=== PATIENT | female | born 2000 ===

== ENCOUNTER 2021-07-21 21:51 | Emergency (ER) | payer BC ==
--- OUTSIDE RECORDS SUMMARY | 2021-07-21 21:53 | XMS REPORT | Continuity of Care Document ---
:[address] [facility] t Address [address] [place] [address] Care Team Providers Name Role Phone PRINCE LAWRENCE Attending Clinician Unavailable Payers Payer Name Policy Type Policy Number Effective Date Expiration Date Roni CHARLES II [id number] 2019 00:00:00 Problems This patient has no known problems. Allergies, Adverse Reactions, Alerts Allergy Allergy Status Severity Reaction(s) Onset Inactive Treating Comm ents Source Name Type Date Date Clinician CODEINE DRUG Active Hallucinates NPI :[id number] [id number] 00:00: 00 Medications This patient has no known medications. Procedures This patient has no known procedures. Encounters Start End Encounter Admission Attending Care Care Encounter Source Date/Time Date/Time Type Type Clinicians Facility Department ID 2021-01-14 Emergency [facility] [id number] NPI:[id number] 05:11:42 [id number] 2020-03-26 [facility] [id number] Q-[id number] NPI:[id number] 10:15:00 10:15:00 JHONATHAN [id number] 2020-03-26 2020-03-26 [facility] [id number] NPI:[id number] 10:15:00 10:15:00 JHONATHAN [id number] 2019-12-27 2019-12-27 [facility] [id number] Q-20 NPI:[id number] 10:00:00 10:00:00 JHONATHAN [id number] 2019-12-27 2019-12-27 [facility] [id number] NPI:[id number] 10:00:00 10:00:00 JHONATHAN [id number] 2019-11-29 2019-11-29 [facility] [id number] Q-20 NPI:[id number] 09:30:00 09:30:00 JHONATHAN [id number] 2019-11-29 2019-11-29 [facility] [id number] NPI:[id number] 09:30:00 09:30:00 JHONATHAN [id number] Results This patient has no known results.
[2021-07-22 01:18] LABS: Hematocrit 37.9 % (36.0-45.0); MPV 7.9 fL (7.6-11.3); RBC Red Blood Cell Count 4.37 M/uL (3.86-4.86)
[2021-07-22 01:19] LABS: Absolute Lymphocytes (CBC) 2.2 K/uL (0.7-4.9)
[2021-07-22 01:22] LABS: Protime INR 1.12
[2021-07-22 01:47] LABS: ALT/SGPT 19 U/L (12-78); AST/SGOT 13 U/L (15-37); Albumin 4.2 g/dL (3.4-5.0); Alkaline Phosphatase 69 U/L (45-117); BUN Blood Urea Nitrogen 14 mg/dL (7-18); Bicarbonate 26 mmol/L (21-32); Bilirubin Direct 0.1 mg/dL (0-0.2); Bilirubin Total 0.5 mg/dL (0.2-1.0); Glucose Level 91 mg/dL (74-106); Magnesium 1.9 mg/dL (1.8-2.4); NT PRO-BNP 28 pg/mL (<125); Potassium 3.7 mmol/L (3.5-5.1); Protein, Total 7.7 g/dL (6.4-8.2); Sodium Level 140 mmol/L (136-145)
[2021-07-22 01:55] LABS: Troponin High Sensitivity < 3.0 pg/mL (<58.9)
[2021-07-22 05:24] LABS: Urine Blood Negative (Negative); Urine Glucose Negative (Negative); Urine Protein Negative (Negative); Urine Specific Gravity >=1.030 (1.005-1.030); Urine pH 6.5 (5.0-7.0)
[2021-07-22] MEDS ORDERED: CIPROFLOXACIN HCL 500 MG TAB ONE (05:35)
[2021-07-22 05:44] LABS: Barbiturates NEGATIVE (NEGATIVE); Benzodiazepines NEGATIVE (NEGATIVE); Cocaine NEGATIVE (NEGATIVE); METHAMPHETAM NEGATIVE (NEGATIVE); Methadone NEGATIVE (NEGATIVE); Opiates NEGATIVE (NEGATIVE); Phencyclidine NEGATIVE (NEGATIVE); THC Cannibis NEGATIVE (NEGATIVE)
--- NOTE | 2021-07-22 05:54 | ER ---
Nurse's Notes [facility] Name: Pari Toledo Age: 21 yrs Sex: Female : 2000 Arrival Date: 07/21/2021 Time: 21:56 Bed 24 Private MD: Diagnosis: Chest pain, unspecified;UTI/ Urinary tract infection, site not specified Presentation: 07/21 22:57 Chief complaint: Patient states: she has been having generalized intermittent chest bb pain for several weeks denies any other symptoms states pain lasts a couple of minutes then goes away. Coronavirus screen: At this time, the client does not indicate any symptoms associated with coronavirus-19. Ebola Screen: No symptoms or risks identified at this time. Initial Sepsis Screen: Does the patient meet any 2 criteria? No. Patient's initial sepsis screen is negative. Does the patient have a suspected source of infection? No. Patient's initial sepsis screen is negative. Risk Assessment: Do you want to hurt yourself or someone else? Patient reports no desire to harm self or others. Onset of symptoms is unknown. 22:57 Method Of Arrival: Ambulatory bb 22:57 Acuity: JULIANNA 3 bb Triage Assessment: 22:59 General: Appears in no apparent distress. Behavior is calm, cooperative. Pain: bb Complains of pain in chest Pain currently is 5 out of 10 on a pain scale. Neuro: Level of Consciousness is awake, alert, obeys commands, Oriented to person, place, time, situation. Cardiovascular: Capillary refill < 3 seconds Patient's skin is warm and dry. Respiratory: Respiratory effort is even, unlabored, Respiratory pattern is regular. GI: No signs and/or symptoms were reported involving the gastrointestinal system. Derm: Skin is pink, warm \\T\\ dry. Musculoskeletal: Circulation, motion, and sensation intact. 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 - Social history:: Smoking status: Patient denies any tobacco usage or history of. Screenin/09 01:09 Abuse screen: Denies threats or abuse. Denies injuries from another. Nutritional lg3 screening: No deficits noted. Tuberculosis screening: No symptoms or risk factors identified. Fall Risk None identified. Assessment: 00:57 General: Appears in no apparent distress. comfortable, Behavior is calm, cooperative. lg3 Pain: Denies pain. Neuro: No deficits noted. Leal Agitation-Sedation Scale (RASS): 0 - Alert and Calm Level of Consciousness is awake, alert, obeys commands. Cardiovascular: No deficits noted. Reports intermittent epigastric and chest pain Capillary refill < 3 seconds Clubbing of nail beds is absent JVD is absent Patient's skin is warm and dry. Respiratory: No deficits noted. Airway is patent Trachea midline Respiratory effort is even, unlabored, Respiratory pattern is regular, symmetrical. GI: No deficits noted. No signs and/or symptoms were reported involving the gastrointestinal system. : No deficits noted. No signs and/or symptoms were reported regarding the genitourinary system. EENT: No deficits noted. No signs and/or symptoms were reported regarding the EENT system. Derm: No deficits noted. No signs and/or symptoms reported regarding the dermatologic system. Skin is intact, is healthy with good turgor, Skin is dry, Skin is pink, warm \\T\\ dry. Musculoskeletal: No deficits noted. No signs and/or symptoms reported regarding the musculoskeletal system. 01:10 Pain: Pain began 2 weeks ago. lg3 01:10 Pain: Pain does not radiate. lg3 02:21 Reassessment: Patient appears in no apparent distress at this time. No changes from lg3 previously documented assessment. Patient and/or family updated on plan of care and expected duration. Pain level reassessed. Patient is alert, oriented x 3, equal unlabored respirations, skin warm/dry/pink. Pain: Denies pain. 02:39 General: reminded PT of need of urine sample. pt stated "i cant pee right now. ill try lg3 later if i feel like i need to". offered and encouraged PO fluids. 04:39 Reassessment: Patient appears in no apparent distress at this time. No changes from lg3 previously documented assessment. Patient and/or family updated on plan of care and expected duration. Pain level reassessed. Patient is alert, oriented x 3, equal unlabored respirations, skin warm/dry/pink. Patient denies pain at this time. Vital Signs: 07/21 22:57 BP 94 / 76; Pulse 71; Resp 16 S; Temp 98.4(O); Pulse Ox 100% on R/A; Weight 80.74 kg bb (R); Height 5 ft. 11 in. (180.34 cm) (R); Pain 5/10; 07/22 03:14 BP 91 / 50; Pulse 70; Resp 18; Pulse Ox 100% on R/A; oe 04:24 BP 104 / 55; Pulse 60; Resp 18; Pulse Ox 98% on R/A; oe 07/21 22:57 Body Mass Index 24.83 (80.74 kg, 180.34 cm) bb ED Course: 07/21 21:56 Patient arrived in ED. kz 22:59 Triage completed. bb 22:59 Arm band placed on Patient placed in waiting room, Patient notified of wait time. bb 07/22 00:40 Debbie Oliver RN is Primary Nurse. lg3 00:44 Lucio Miller MD is Attending Physician. mh7 01:08 Basic Metabolic Panel Sent. lg3 01:09 Patient has correct armband on for positive identification. Bed in low position. Call lg3 light in reach. Side rails up X 1. Client placed on continuous cardiac and pulse oximetry monitoring. NIBP monitoring applied. quality assurance monitor final on. Door closed. Noise minimized. Warm blanket given. 01:09 CBC with Diff Sent. lg3 01:09 D-Dimer Sent. lg3 01:09 LFT's Sent. lg3 01:09 Magnesium Sent. lg3 01:09 NT PRO-BNP Sent. lg3 01:09 PT-INR Sent. lg3 01:09 Troponin HS Sent. lg3 01:10 Inserted saline lock: 20 gauge in right antecubital area, using aseptic technique. lg3 Blood collected. Patient maintains SpO2 saturation greater than 95% on room air. 01:46 XRAY Chest (1 view) In Process Unspecified. EDMS 06:12 No provider procedures requiring assistance completed. IV discontinued, intact, lg3 bleeding controlled, No redness/swelling at site. Pressure dressing applied. Administered Medications: 05:32 Drug: Cipro (ciprofloxacin) 500 mg Route: PO; bb 05:32 Follow up: Response: No adverse reaction bb Outcome: 05:53 Discharge ordered by . samuel 06:12 Discharged to home ambulatory, with family. lg3 06:12 Condition: stable 06:12 Discharge instructions given to patient, Instructed on discharge instructions, medication usage, Demonstrated understanding of instructions, medications, Prescriptions given X 1. 06:13 Patient left the ED. lg3 Signatures: Dispatcher [employer] EDMS Shahnaz Mata RN RN bb Espinosa, Orlando oe Gibson, Lacie, RN RN lg3 Lucio Miller MD MD mh7 Zapata, Kelly kz
--- NOTE | 2021-07-22 05:54 | EDPHYS ---
Physician Documentation [facility] Name: Pari Toledo Age: 21 yrs Sex: Female : 2000 Arrival Date: 07/21/2021 Time: 21:56 Bed 24 Private MD: ED Physician Lucio Miller HPI: 07/22 01:40 This 21 yrs old Female presents to ER via Ambulatory with complaints of Chest Pain. mh7 01:40 The patient or guardian reports chest pain that is located primarily in the substernal mh7 area. The pain does not radiate. Associated signs and symptoms: Pertinent negatives: abdominal pain, cough, diaphoresis, dizziness, headache, lower extremity pain, lower extremity swelling, lightheadedness, nausea, near syncope, palpitations, recent travel, shortness of breath, syncope, vomiting. The chest pain is described as sharp. Duration: The patient or guardian reports multiple episodes, that are intermittent, that wax and wane, with no pattern. Modifying factors: The symptoms are alleviated by nothing. the symptoms are aggravated by nothing. Severity of pain: At its worst the pain was moderate 7 day(s) ago, in the emergency department the pain has improved markedly. 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 - Social history:: Smoking status: Patient denies any tobacco usage or history of. ROS: 07/22 01:40 Constitutional: Negative for fever, chills, and weight loss, Eyes: Negative for injury, mh7 pain, redness, and discharge, ENT: Negative for injury, pain, and discharge, Neck: Negative for injury, pain, and swelling, Respiratory: Negative for shortness of breath, cough, wheezing, and pleuritic chest pain, Abdomen/GI: Negative for abdominal pain, nausea, vomiting, diarrhea, and constipation, Back: Negative for injury and pain, : Negative for injury, bleeding, discharge, and swelling, MS/Extremity: Negative for injury and deformity, Skin: Negative for injury, rash, and discoloration, Neuro: Negative for headache, weakness, numbness, tingling, and seizure, Psych: Negative for depression, anxiety, suicide ideation, homicidal ideation, and hallucinations, Allergy/Immunology: Negative for hives, rash, and allergies, Endocrine: Negative for neck swelling, polydipsia, polyuria, polyphagia, and marked weight changes, Hematologic/Lymphatic: Negative for swollen nodes, abnormal bleeding, and unusual bruising. Exam: 01:40 Constitutional: This is a well developed, well nourished patient who is awake, alert, mh7 and in no acute distress. Head/Face: Normocephalic, atraumatic. Eyes: Pupils equal round and reactive to light, extra-ocular motions intact. Lids and lashes normal. Conjunctiva and sclera are non-icteric and not injected. Cornea within normal limits. Periorbital areas with no swelling, redness, or edema. Neck: Trachea midline, no thyromegaly or masses palpated, and no cervical lymphadenopathy. Supple, full range of motion without nuchal rigidity, or vertebral point tenderness. No Meningismus. Chest/axilla: Normal chest wall appearance and motion. Nontender with no deformity. No lesions are appreciated. Cardiovascular: Regular rate and rhythm with a normal S1 and S2. No gallops, murmurs, or rubs. Normal PMI, no JVD. No pulse deficits. Respiratory: Lungs have equal breath sounds bilaterally, clear to auscultation and percussion. No rales, rhonchi or wheezes noted. No increased work of breathing, no retractions or nasal flaring. Abdomen/GI: Soft, non-tender, with normal bowel sounds. No distension or tympany. No guarding or rebound. No evidence of tenderness throughout. Back: No spinal tenderness. No costovertebral tenderness. Full range of motion. Skin: Warm, dry with normal turgor. Normal color with no rashes, no lesions, and no evidence of cellulitis. MS/ Extremity: Pulses equal, no cyanosis. Neurovascular intact. Full, normal range of motion. Neuro: Awake and alert, GCS 15, oriented to person, place, time, and situation. Cranial nerves II-XII grossly intact. Motor strength 5/5 in all extremities. Sensory grossly intact. Cerebellar exam normal. Normal gait. Psych: Awake, alert, with orientation to person, place and time. Behavior, mood, and affect are within normal limits. Vital Signs: 07/21 22:57 BP 94 / 76; Pulse 71; Resp 16 S; Temp 98.4(O); Pulse Ox 100% on R/A; Weight 80.74 kg bb (R); Height 5 ft. 11 in. (180.34 cm) (R); Pain 5/10; 07/22 03:14 BP 91 / 50; Pulse 70; Resp 18; Pulse Ox 100% on R/A; oe 04:24 BP 104 / 55; Pulse 60; Resp 18; Pulse Ox 98% on R/A; oe 07/21 22:57 Body Mass Index 24.83 (80.74 kg, 180.34 cm) bb MDM: 05:51 Differential diagnosis: acute pericarditis, anxiety, chest wall pain, costochondritis, mh7 esophagitis, gastritis, gastroesophageal reflux disease (GERD), peptic ulcer disease, pericarditis, pneumonia, pulmonary embolus. HEART Score: History: Slightly Suspicious (0), ECG: Normal (0), Age: < or = 45 years (0), Risk Factors: No Risk Factors Known (0), Troponin: < or = 1 x Normal Limit (0), Total Score = 0. Data reviewed: vital signs, nurses notes, lab test result(s), cardiac enzymes, CBC, electrolytes, urinalysis, urine drug screen, UPT: negative EKG, radiologic studies, plain films. Data interpreted: Pulse oximetry: on room air is 98 %. Interpretation: normal. Counseling: I had a detailed discussion with the patient and/or guardian regarding: the historical points, exam findings, and any diagnostic results supporting the discharge/admit diagnosis, lab results, radiology results, the need for outpatient follow up, to return to the emergency department if symptoms worsen or persist or if there are any questions or concerns that arise at home. Response to treatment: the patient's symptoms have resolved after treatment, the patient's blood pressure is in an acceptable range, mental status has returned to baseline, the patient no longer shows bradycardia, the patient is not short of breath, the patient is not tachycardic, the patient's pain is gone, the patient's temperature has normalized. 05:53 Patient medically screened. [facility] 07/22 00:55 Order name: Basic Metabolic Panel; Complete Time: 03:05 [facility] 07/22 00:55 Order name: CBC with Diff; Complete Time: 01:45 [facility] 07/22 00:55 Order name: D-Dimer; Complete Time: 01:45 [facility] 07/22 00:55 Order name: LFT's; Complete Time: 03:05 [facility] 07/22 00:55 Order name: Magnesium; Complete Time: 03:05 [facility] 07/22 00:55 Order name: NT PRO-BNP; Complete Time: 03:05 [facility] 07/22 00:55 Order name: PT-INR; Complete Time: 01:45 [facility] 07/22 00:55 Order name: Troponin HS; Complete Time: 03:05 [facility] 07/22 00:55 Order name: XRAY Chest (1 view) [facility] 07/22 00:55 Order name: EKG; Complete Time: 00:56 [facility] 07/22 00:55 Order name: UDS; Complete Time: 05:51 [facility] 07/22 05:24 Order name: Urine Dipstick-Ancillary; Complete Time: 05:51 [facility] 07/22 00:55 Order name: Cardiac monitoring; Complete Time: 00:57 [facility] 07/22 00:55 Order name: EKG - Nurse/Tech; Complete Time: 00:57 [facility] 07/22 00:55 Order name: IV Saline Lock; Complete Time: 01:08 [facility] 07/22 00:55 Order name: Labs collected and sent; Complete Time: 01:08 [facility] 07/22 00:55 Order name: O2 Per Protocol; Complete Time: 00:57 [facility] 07/22 00:55 Order name: O2 Sat Monitoring; Complete Time: 00:57 [facility] 07/22 00:55 Order name: Urine Dipstick-Ancillary (obtain specimen); Complete Time: 05:32 [facility] 07/22 00:55 Order name: Urine Test (obtain specimen); Complete Time: 05:32 [facility] Administered Medications: 05:32 Drug: Cipro (ciprofloxacin) 500 mg Route: PO; bb 05:32 Follow up: Response: No adverse reaction bb Disposition Summary: 07/22/21 05:53 Discharge Ordered Location: Home [facility] Problem: an ongoing problem [facility] Symptoms: have improved [facility] Condition: Stable [facility] Diagnosis - Chest pain, unspecified [facility] - UTI/ Urinary tract infection, site not specified [facility] Followup: [facility] - With: Private Physician - When: 1 - 2 days - Reason: Worsening of condition, Recheck today's complaints, Continuance of care, Re-evaluation by your physician Discharge Instructions: - Form - Return To Work mw2 - Discharge Summary Sheet [facility] - Urinary Tract Infection, Adult, [id number] [facility] - Nonspecific Chest Pain, Adult, [id number] [facility] Forms: - Work release form mw2 - Medication Reconciliation Form [facility] - Thank You Letter [facility] - Antibiotic Education [facility] - Prescription Opioid Use [facility] Prescriptions: - Cipro 500 mg Oral Tablet - take 1 tablet by ORAL route every 12 hours for 7 days; 14 tablet; Refills: 0, [facility] Product Selection Permitted Signatures: Dispatcher [employer] Shahnaz Mueller, RUDY RN Lucio De Luna MD MD 7 Marian Bahena PA PA sb3
[2021-07-22 06:20] VITALS: TEMP 98.4
[2021-07-22 06:23] VITALS: BP 104/55; O2SAT 98
--- NOTE | 2021-07-22 08:55 | EKG ---
Test Date: 2021-07-22 Test Time: 00:55:21 Beck Operator: MEASUREMENT RESULTS: Intervals: Rate: 80 MN: 148 QRSD: 88 QT: 378 QTc: 435 [place]: P: 60 MN: 148 QRS: 94 T: 54 INTERPRETIVE STATEMENTS: Normal sinus rhythm Rightward axis Borderline ECG No previous ECG available for comparison Electronically Signed On 07-22-21 08:54:27 CDT by Adalberto Palmer
--- NOTE | 2021-07-22 15:07 | RAD REPORT ---
EXAM DESCRIPTION: RAD - Chest Single View - 07/22/2021 1:44 am CLINICAL HISTORY: Chest pain COMPARISON: None. TECHNIQUE: Chest 1 View AP FINDINGS: Trachea midline. Heart size and pulmonary vessels within normal limits. Lungs clear without evidence of consolidation, mass, or significant pulmonary edema. No significant pleural effusion or pneumothorax. Mild symmetric bilateral lower lungs/chest density most likely represents overlying breast/chest wall attenuation artifact. Bones unremarkable. IMPRESSION: Normal chest radiograph. Electronically signed by: Marin Graham MD 07/22/2021 1:58 AM CDT Due to temporary technical issues with the PACS/Fluency reporting system, reports are being signed by the in house radiologist without review as a courtesy to ensure prompt reporting. The interpreting r adiologist is fully responsible for the content of the report.
== END 2021-07-22 06:13 | disposition home or self-care (01) ==
LOC: ER 21:51
DX: R07.9 Chest pain, unspecified (principal); N39.0 Urinary tract infection, site not specified; F41.9 Anxiety disorder, unspecified; Z88.5 Allergy status to narcotic agent
CPT/HCPCS: 36415; 71045; 80048; 80076; 80307; 81003; 83735; 83880; 84484; 85025; 85379; 85610; 93005; 99285